=== PATIENT | female | born 1955 | race African-American/Black ===

== ENCOUNTER 2017-03-12 09:20 | Emergency (ER) | payer BC ==
[~2017-03-12] VITALS: Ht 167.6 cm; Wt 85.0 kg
[~2017-03-12 09:20] MED LIST: AMLO5TAB4 PO; SAXENDA
[2017-03-12 10:29] LABS: BASOPHILS % 0.3 % (0.0-2.0); EOSINOPHILS % 1.5 % (0.0-5.0); HEMATOCRIT. 40.3 % (36.0-48.0); HEMOGLOBIN. 13.7 g/dL (12.0-16.0); LYMPHOCYTES % 15.3 % (20.0-50.0); MEAN CORPUSCULAR HEMOGLOBIN 30.6 pg (28.0-32.0); MEAN CORPUSCULAR HGB CONC 34.1 g/dL (31.0-37.0); MEAN CORPUSCULAR VOLUME 89.9 fL (81.0-99.0); MEAN PLATELET VOLUME 7.8 fl (7.4-10.4); MONOCYTES % 7.7 % (2.0-8.0); NEUTROPHILS % 75.2 % (40.0-76.0); PLATELET 233 x1000/uL (130-400); RED BLOOD CELL COUNT 4.48 mill/uL (4.2-5.4); RED CELL DISTRIBUTION WIDTH 14.4 % (11.6-14.6); WHITE BLOOD COUNT 6.5 x1000/uL (4.5-11.0)
[2017-03-12 10:34] LABS: CHLORIDE 106 mEq/L (98-107); INDEX HEMOLYSI 1 (1-3); INDEX ICTERIC 1 (1-4); INDEX LIPEMIC 1 (1-3)
[2017-03-12 10:38] LABS: PARTIAL THROMBOPLASTIN TIME 32.4 sec (24.0-34.0); PROTHROMBIN TIME 10.8 sec
[2017-03-12 10:39] LABS: ANION GAP 12; CALCIUM 9.5 mg/dL (8.5-10.1); CARBON DIOXIDE 30 mEq/L (21-32); UREA NITROGEN BLOOD 17 mg/dL (7-21); eGFR > 60 mL/min (>60)
[2017-03-12] MEDS ORDERED: TETANUS, DIPHTHERIA, PERTUSSIS VAC/PF 0.5ML (>7YR OLD) IM ONE (11:15)
[2017-03-12] MEDS: VANCOMYCIN 1 G PREMIX 200 ML IV SCH ×2 (11:41→12:31)
[2017-03-12] MEDS ORDERED: LEVOFLOXACIN 500MG TABLET PO ONE (12:45)
[2017-03-12 13:00] VITALS: BP 130/88
== END 2017-03-12 14:30 | disposition home or self-care (01) ==
LOC: ER 09:47
DX: S41.152A Open bite of left upper arm, initial encounter (principal); L03.114 Cellulitis of left upper limb; I10 Essential (primary) hypertension; Z88.0 Allergy status to penicillin; Z88.2 Allergy status to sulfonamides; Z88.1 Allergy status to other antibiotic agents; W54.0XXA Bitten by dog, initial encounter; Y93.89 Activity, other specified; Y92.9 Unspecified place or not applicable; Y99.8 Other external cause status
CPT/HCPCS: 36415; 71010; 80048; 83605; 85025; 85610; 85730; 87040; 90471; 90715; 96365; 96366; 99285; J3370; Z7610

== ENCOUNTER → 2024-01-23 | Day surgery (SDC) | payer MEDICARE ==
[~2024-01-23] MED LIST changes: +REGADENOSON 0.4 MG/5 ML IV ONE
== END | disposition home or self-care (01) ==
LOC: CCL 09:45
PROVIDERS: ATTEND Internal Medicine
DX: I20.0 Unstable angina (principal); I37.1 Nonrheumatic pulmonary valve insufficiency; Z79.899 Other long term (current) drug therapy; Z88.0 Allergy status to penicillin; Z88.1 Allergy status to other antibiotic agents
CPT/HCPCS: 93306; 93017; 71046; 78452; J2785; A9500; Z7610